=== PATIENT | female | born 1950 | race Caucasian/White ===

== ENCOUNTER 2016-04-18 16:23 | Emergency (ER) | payer MEDICAID, OTHER ==
[~2016-04-18] VITALS: Ht 162.6 cm; Wt 65.0 kg
[~2016-04-18 16:23] MED LIST: ACET500T98 PO; HYDR-3498 PO; IBUP-1542 PO; IBUP200C PO; MED4DP PO; NAPR-260 PO; ULT50 PO
[2016-04-18 16:32] VITALS: Ht 162.6 cm; Wt 65.0 kg
[2016-04-18] MEDS ORDERED: SOD CHLORIDE 0.9% 1,000 ML IV STA (19:21)
[2016-04-18] MEDS ORDERED: morphine 4 MG/ML VIAL IV STA (19:21)
[2016-04-18] MEDS ORDERED: ONDANSETRON 4 MG INJ IV STA ×2 (19:21→21:10)
[2016-04-18 19:30] VITALS: TEMP 98.3
[2016-04-18] MEDS ORDERED: KETOROLAC 30 MG INJ IV STA ×2 (19:31→20:36)
[2016-04-18 19:39] LABS: BASOPHILS % 0.2 % (0.0-2.0); EOSINOPHILS % 0.2 % (0.0-7.0); HEMATOCRIT 41.7 % (37.0-47.0); HEMOGLOBIN 14.1 g/dl (12.0-16.0); LYMPHOCYTES # 1.5 10^3/ul (0.8-2.9); MEAN CORPUSCULAR HEMOGLOBIN 29.4 pg (29.0-33.0); MEAN CORPUSCULAR HGB CONC 33.8 g/dl (32.0-37.0); MEAN PLATELET VOLUME 8.6 fl (7.4-10.4); MONOCYTE # 0.6 10^3/ul (0.3-0.9); MONOCYTES % 4.6 % (0.0-11.0); NEUTROPHIL # 10.2 10^3/ul (1.6-7.5); PLATELET COUNT 341 10^3/UL (140-440); RED BLOOD COUNT 4.79 10^6/ul (4.20-5.40); RED CELL DISTRIBUTION WIDTH 12.6 % (11.5-14.5); UNCORRECTED WBC 12.2 10^3/ul (4.8-10.8); WHITE BLOOD COUNT 12.2 10^3/ul (4.8-10.8)
[2016-04-18 19:40] LABS: ADD UMIC YES; URINE BILIRUBIN (Dip) NEGATIVE (NEGATIVE); URINE BLOOD (Dip) NEGATIVE (NEGATIVE); URINE COLOR LT. YELLOW (YELLOW); URINE GLUCOSE (Dip) NEGATIVE (NEGATIVE); URINE KETONES (Dip) NEGATIVE (NEGATIVE); URINE LEUKOCYTE ESTERASE (Dip) NEGATIVE (NEGATIVE); URINE NITRITE (Dip) NEGATIVE (NEGATIVE); URINE TOTAL PROTEIN (Dip) NEGATIVE (NEGATIVE); URINE UROBILINOGEN (Dip) 0.2 E.U./dL (0.1-1.0)
[2016-04-18 19:43] LABS: CONDITION 1
[2016-04-18 19:46] LABS: ALBUMIN 4.5 g/dl (3.3-4.9); CHLORIDE 95 mmol/L (97-110); SODIUM 142 mmol/L (135-144)
[2016-04-18 19:47] LABS: INR 0.98; PARTIAL THROMBOPLASTIN TIME 29.2 Sec (25.0-35.0)
[2016-04-18 19:48] LABS: AMYLASE 85 U/L (11-123); CREATININE 0.67 mg/dl (0.44-1.00)
[2016-04-18 19:49] LABS: ALANINE AMINOTRANSFERASE 31 IU/L (13-69); ALBUMIN/GLOBULIN RATIO 1.25; ALKALINE PHOSPHATASE 99 IU/L (42-121); ANION GAP 17 (8-16); ASPARTATE AMINO TRANSFERASE 28 IU/L (15-46); BILIRUBIN,INDIRECT 0.2 mg/dl (0-1.1); BILIRUBIN,TOTAL 0.2 mg/dl (0.2-1.3); BLOOD UREA NITROGEN 13 mg/dl (7-20); CARBON DIOXIDE 34 mmol/L (21-31); GLUCOSE 153 mg/dl (70-220); TOTAL PROTEIN 8.1 g/dl (6.1-8.1)
[2016-04-18 19:50] LABS: CALCIUM 9.8 mg/dl (8.4-10.2); URINE RBCS NONE SEEN /HPF (0)
[2016-04-18 20:29] LABS: TROPONIN-I < 0.010 ng/ml (0.00-0.12)
--- NOTE | 2016-04-18 20:40 | ERD ---
ER Documentation Chief Complaint Date/Time DATE: 04/18/16 TIME: 20:38 Chief Complaint ABD PAIN , FEVER , VOMITING X 5 DAYS HPI This is a 66-year-old Serbian-speaking female with no past medical history other than arthritis that presents to the emergency department complaining of intermittent right upper quadrant pain for the past 5 days. She indicates that the pain radiates to the tip of the right scapula. She has had multiple episodes of nonbloody nonbilious emesis after the onset of the pain. She has had a tactile fever with no shaking or chills. She did not take any analgesic medication or antipyretics prior to arrival. She denies any frequency urgency or dysuria. She denies any similar pain in the past. She denies any hemoptysis hematemesis or melanotic stools. She denies any chest pain or pressure that radiates to the neck arm back or jaw. She has no shortness of breath at rest or exertion. ROS All systems reviewed and are negative except as per history of present illness. Medications Home Meds Active Scripts Ibuprofen* (Motrin*) 600 Mg Tab, 600 MG PO Q8, #30 TAB Prov:TIA ABRAHAM 04/18/16 Hydrocodone/Acetaminophen ([place] 5-325 Tablet) 1 Each Tablet, 1 TAB PO Q6H Y for PAIN, #20 TAB Prov:TIA ABRAHAM 04/18/16 Discontinued Scripts Naproxen* (Naprosyn*) 500 Mg Tablet, 500 MG PO BID Y for PAIN AND/OR INFLAMMATION, #30 TAB Prov:DAVIDSON GUTIERREZ PA-C 01/04/16 Methylprednisolone* (Medrol* DOSE PACK) 4 Mg/Dose-Pack Tab.ds.pk, 4 MG PO . DIRECTED, #1 PACKET Prov:DAVIDSON GUTIERREZ PA-C 01/04/16 Tramadol HCl (Tramadol HCl) 50 Mg Tablet, 50 MG PO Q6 Y for PAIN, #30 TAB Prov:LYN RAMIREZ PA-C 07/26/15 Ibuprofen* (Motrin*) 600 Mg Tab, 600 MG PO Q6, #30 TAB Prov:LYN RAMIREZ PA-C 07/26/15 Hydrocodone Bit-Acetaminophen* ([place]*) 5-325 Mg Tab, 1 TAB PO Q6 Y for PAIN, # 14 TAB Prov:DONALD HERNANDEZ DO 05/25/15 Ibuprofen* (Ibuprofen*) 200 Mg Capsule, 200 MG PO Q6, #30 CAP 0 Refills Prov:CRISTALJORDAN PA-C 04/25/15 Acetaminophen (Tylenol) 500 Mg Tab, 500 MG PO Q6, #30 TAB 0 Refills Prov:JOY BEEWINTER BOLTON 04/25/15 Allergies Allergies: Coded Allergies: No Known Allergy (Unverified , 04/18/16) PMhx/Soc Medical and Surgical Hx: pt denies Surgical Hx History of Surgery: No Anesthesia Reaction: No Hx Neurological Disorder: No Hx Respiratory Disorders: No Hx Cardiac Disorders: No Hx Psychiatric Problems: No Hx Miscellaneous Medical Probl: Yes (OA,Gallstones) Hx Alcohol Use: No Hx Substance Use: No Hx Tobacco Use: No Smoking Status: Never smoker Physical Exam Vitals Vital Signs Date Time Temp Pulse Resp B/P Pulse Ox O2 Delivery O2 Flow Rate FiO2 04/18/16 19:30 98.3 73 18 118/76 100 Room Air 04/18/16 16:32 98.2 112 18 170/87 100 Physical Exam Constitutional:Well-developed. Well-nourished. Patient tearful and appeared to be in a significant amount of discomfort secondary to HEENT:Normocephalic. Atraumatic.Pupils were equal round reactive to light. Moist mucous membranes.No tonsillar exudates. Neck: No nuchal rigidity. No lymphadenopathy. No posterior cervical spine tenderness or step-offs. Respiratory: Not using accessory muscles of respiration.Lungs were clear to auscultation bilaterally. No rhonchi. No rales. No wheezing. Cardiovascular: Regular rate regular rhythm.No murmurs. No rubs were appreciated.S1, S2 normal. Distal pulses are palpable 2+ bilaterally. GI: Abdomen was soft. Right upper quadrant tenderness with negative Stone's sign. Non Distended. No pulsatile abdominal masses or bruits. No rebound. No guarding. Bowel sounds were present and normal. Muscle skeletal: Full range of motion of both the upper and lower extremities bilaterally.Normal muscle tone.No assymetrical calf tenderness or swelling. Skin: No petechia, no purpura. No lesions on the palms or the soles of the feet. No maculopapular rash. NEURO: Patient was alert, awake, orientated x3.No facial droop. Gait observed and normal with no ataxia.Speech had regular rate and rhythm. No focal neurological deficits. Result Diagram: 04/18/16191904/18/161919 Results 24 hrs Laboratory Tests Test 04/18/16 19:20 Activated Partial Thromboplast Time 29.2Sec Alanine Aminotransferase (ALT/SGPT) 31IU/L Albumin 4.5g/dl Albumin/Globulin Ratio 1.25 Alkaline Phosphatase 99IU/L Amylase Level 85U/L Anion Gap 17 Aspartate Amino Transf (AST/SGOT) 28IU/L Basophils # 0.010^3/ul Basophils % 0.2% Blood Urea Nitrogen 13mg/dl Calcium Level 9.8mg/dl Carbon Dioxide Level 34mmol/L Chloride Level 95mmol/L Creatinine 0.67mg/dl Direct Bilirubin 0.00mg/dl Eosinophils # 0.010^3/ul Eosinophils % 0.2% Globulin 3.60g/dl Glucose Level 153mg/dl Hematocrit 41.7% Hemoglobin 14.1g/dl INR International Normalized Ratio 0.98 Indirect Bilirubin 0.2mg/dl Lipase 99U/L Lymphocytes # 1.510^3/ul Lymphocytes % 12.0% Mean Corpuscular Hemoglobin 29.4pg Mean Corpuscular Hemoglobin Concent 33.8g/dl Mean Corpuscular Volume 87.0fl Mean Platelet Volume 8.6fl Monocytes # 0.610^3/ul Monocytes % 4.6% Neutrophils # 10.210^3/ul Neutrophils % 83.0% Nucleated Red Blood Cells # 0.010^3/ul Nucleated Red Blood Cells % 0.0/100WBC Platelet Count 56323^3/UL Potassium Level 4.0mmol/L Prothrombin Time 13.0Sec Prothrombin Time Ratio 1.0 Red Blood Count 4.7910^6/ul Red Cell Distribution Width 12.6% Sodium Level 142mmol/L Total Bilirubin 0.2mg/dl Total Protein 8.1g/dl Troponin I < 0.010ng/ml Urine Amorphous Urates MODERATE Urine Bilirubin NEGATIVE Urine Clarity CLOUDY Urine Color LT. YELLOW Urine Glucose NEGATIVE% Urine Hemoglobin NEGATIVE Urine Ketones NEGATIVE Urine Leukocyte Esterase NEGATIVE Urine Microscopic RBC NONE SEEN/HPF Urine Microscopic WBC NONE SEEN/HPF Urine Nitrite NEGATIVE Urine Specific Banks 1.020 Urine Total Protein NEGATIVE Urine Urobilinogen 0.2 E.U./dL Urine pH 8.0 White Blood Count 12.210^3/ul Current Medications Medications (Trade) Dose Ordered Sig/Shellie Route PRN Reason Start Time Stop Time Status Last Admin Dose Admin Sodium Chloride (NS) 1,000 ml @ 1,000 mls/hr Q1H STAT IV 04/18/16 19:21 04/18/16 20:20 DC 04/18/16 19:43 Morphine Sulfate (morphine) 4 mg ONCE STAT IV 04/18/16 19:21 04/18/16 19:22 DC 04/18/16 19:43 Ondansetron HCl (Zofran Inj) 4 mg ONCE STAT IV 04/18/16 19:21 04/18/16 19:22 DC 04/18/16 19:43 Ketorolac Tromethamine (Toradol) 30 mg ONCE STAT IV 04/18/16 19:31 04/18/16 19:33 DC 04/18/16 19:45 Ketorolac Tromethamine (Toradol) 30 mg ONCE STAT IV 04/18/16 20:36 04/18/16 20:37 UNV Hydromorphone HCl (Dilaudid) 1 mg ONCE STAT IV 04/18/16 21:10 04/18/16 21:13 DC Ondansetron HCl (Zofran Inj) 4 mg ONCE STAT IV 04/18/16 21:10 04/18/16 21:13 DC Procedures/MDM The patient presented to the emergency department with epigastric pain. My differential diagnosis included but was not limited to abdominal aortic aneurysm , choledocholithiasis, gallstone ileus, renal colic, pyelonephritis, pancreatitis, peptic ulcer disease, atypical myocardical infarction, mesenteric ischemia, GERD, pulmonary infarction. The patient was placed on a silk screen printer helper, continuous pulse oximetry and IV access was established by nursing staff. An EKG was obtained to rule out myocardial ischemia. There was no elevation of LFTs to suggest ductal obstruction, cholangitis, cholecystiitis or hepatitis. Given that the urinalysis did not show bilirubinuria, my suspicion for common duct obstruction or hepatitis was low. 12 Lead EKG tracing ordered and reviewed by myself showed: Normal sinus rhythm of 85 bpm and no arrhythmia. PA interval normal. QRS duration normal. No ST segment elevation No ST segment depression. No changes consistent with acute ischemia. The patient received intravenous morphine Toradol and Zofran for analgesic control. She also received a liter bolus of 0.9 normal saline. Ultrasound of the gallbladder indicated the patient has cholelithiasis without cholecystitis. The patient's pain is completely resolved. The patient's daughter was at bedside and the patient felt comfortable being discharged home and was given outpatient instructions to improve her diet by avoiding high fatty foods that could exacerbate her biliary colic. The patient was given a prescription of [place] and Motrin for analgesic control The patient was discharged home in fair condition. They were instructed to return to the emergency department at any time if there was any worsening of their condition. The patient stated they would follow up with their PCP in the next 24-48 hours to initiate a suitable medication regimen under the care of their PCP as well as to allow their PCP to monitor any drug reactions. The patient was discharged home with prescriptions after they gave informed consent to the new medication. They were also fully informed by myself on the adverse effects and adverse drug interactions in order to provide adequate safeguards to prevent possible adverse reactions to medications. Departure Diagnosis: Primary Impression: Cholelithiasis Cholelithiasis location: gallbladder Cholecystitis presence: without cholecystitis Biliary obstruction: without biliary obstruction Qualified Code : K80.20 - Calculus of gallbladder without cholecystitis without obstruction Condition: TIA Lee Apr 18, 2016 20:40
--- NOTE | 2016-04-18 20:45 | RADRPT ---
PROCEDURE: US Abdomen (right upper quadrant). CLINICAL INDICATION: Pain. TECHNIQUE: Multiple real-time longitudinal and transverse images of the right upper quadrant of th e abdomen were acquired utilizing a curved array transducer. Images were reviewed on a high-resoluti on PACS workstation. COMPARISON: None FINDINGS: The liver is normal in size and echogencity without focal mass. Multiple gallstones are noted withi n the gallbladder. There is no pericholecystic fluid or gallbladder wall thickening. No intra or e xtrahepatic biliary dilatation is seen. The common bile duct is top normal caliber measuring 6 mm i n maximal dimension. The pancreas is obscured by bowel gas. No free fluid is identified. The right kidney measures 9.2 cm in length. Right kidney is normal in size and echogenicity without hydronephrosis, mass or calculus. There is no perinephric fluid collection. IMPRESSION: 1. Cholelithiasis. No ultrasound evidence for acute cholecystitis. 2. Common bile duct top normal in caliber. No definite biliary ductal dilation. 3. Pancreas obscured by bowel gas. 4. Otherwise negative. RPTAT: RICNH .Ean Coyle MD, MD Date Time Electronically viewed and signed by .Ean Coyle MD, MD on 04/18/2016 20:44 .K/
[2016-04-18] MEDS ORDERED: HYDROmorphONE 1 MG/ML SYG IV STA (21:10)
[2016-04-18] MEDS ORDERED: IBUP-1542 PO (21:15)
[2016-04-18] MEDS ORDERED: HYDR-906 PO (21:15)
[2016-04-18 21:56] VITALS: BP 123/64; PULSE 89; RESP 18
== END 2016-04-18 21:58 | disposition home or self-care (01) ==
LOC: E/R 16:23
DX: K80.20 Calculus of gallbladder without cholecystitis without obstruction (principal); R40.2252 Coma scale, best verbal response, oriented, at arrival to emergency department; R11.10 Vomiting, unspecified
CPT/HCPCS: 76705; 80053; 81001; 82150; 83690; 84484; 85025; 85610; 85730; 93005; 96374; 96375; J1170; J1885; J2270; J2405; J7030; Z7502; Z7610; 81003

== ENCOUNTER 2016-10-25 13:28 | Emergency (ER) | payer OTHER ==
[~2016-10-25] VITALS: Wt 70.5 kg
[~2016-10-25 13:28] MED LIST changes: -ACET500T98 PO; -HYDR-3498 PO; +HYDR-906 PO; -IBUP200C PO; -MED4DP PO; -NAPR-260 PO; -ULT50 PO
--- NOTE | 2016-10-25 14:28 | ERD ---
ER Documentation Chief Complaint Date/Time DATE: 10/25/16 TIME: 14:25 Chief Complaint back pain HPI This 66-year-old female presents with low back pain that started last night after she tried to get up from the bed. She states she was waking up to the restroom, when she tried to stand up she had pain that is sharp, localized in the low back, and she reports some numbness to her right upper thigh. She has a prescription for tramadol, this is prescribed for her gallstones which she tried taking but she states that the pain did not improve with this. She denies any saddle anesthesia, loss of bowel bladder function. She denies fevers or chills. She denies trauma. ROS All systems reviewed and are negative except as per history of present illness. Medications Home Meds Active Scripts Ibuprofen* (Motrin*) 600 Mg Tab, 600 MG PO Q6, #30 TAB Prov:TRAVIS ANTOINE PA-C 10/25/16 Hydrocodone/Acetaminophen ([place] 5-325 Tablet) 1 Each Tablet, 1 TAB PO Q6H Y for PAIN, #15 TAB Prov:TRAVIS ANTOINE PA-C 10/25/16 Ibuprofen* (Motrin*) 600 Mg Tab, 600 MG PO Q8, #30 TAB Prov:TIA ABRAHAM 04/18/16 Hydrocodone/Acetaminophen ([place] 5-325 Tablet) 1 Each Tablet, 1 TAB PO Q6H Y for PAIN, #20 TAB Prov:PRADEEP ABRAHAMA 04/18/16 Allergies Allergies: Coded Allergies: No Known Allergy (Unverified , 04/18/16) PMhx/Soc Medical and Surgical Hx: pt denies Medical Hx, pt denies Surgical Hx History of Surgery: No Anesthesia Reaction: No Hx Neurological Disorder: No Hx Respiratory Disorders: No Hx Cardiac Disorders: No Hx Psychiatric Problems: No Hx Miscellaneous Medical Probl: Yes (OA,Gallstones) Hx Alcohol Use: No Hx Substance Use: No Hx Tobacco Use: No Smoking Status: Never smoker Physical Exam Vitals Vital Signs Date Time Temp Pulse Resp B/P Pulse Ox O2 Delivery O2 Flow Rate FiO2 10/25/16 13:30 98.0 87 20 123/68 100 Physical Exam General: Well-developed, well-nourished. The patient appears in no acute distress. HEENT: Head is normocephalic, atraumatic. No scleral icterus. Neck: Supple. Nontender. Lungs: Clear to auscultation. Normal air movement. Heart: Regular rate and rhythm. S1 and S2 are normal. No murmurs, gallops, or rubs. Abdomen: Soft, nontender, nondistended. Bowel sounds are normoactive. Back: Tender to palpation over L1-L2, paraspinous region on the right side. There is no bony deformity seen. Strength lower 70s 5 out of 5 bilaterally. Extremities: No clubbing or cyanosis. Normal pulses. Moving extremities x 4. No weakness. Neurologic: Alert and oriented 3. No focal deficits. Skin: Normal turgor. No rash or lesions. Results 24 hrs Current Medications Medications (Trade) Dose Ordered Sig/Shellie Route PRN Reason Start Time Stop Time Status Last Admin Dose Admin Ibuprofen (Motrin) 600 mg ONCE ONCE PO 10/25/16 14:30 10/25/16 14:31 DC 10/25/16 14:27 Acetaminophen/ Hydrocodone Bitart ([place] (5/325)) 1 tab ONCE ONCE PO 10/25/16 14:30 10/25/16 14:31 DC 10/25/16 14:27 DIAGNOSTIC IMAGING REPORT Patient: AUBREY BALLESTEROS : 1950 Age: 66 Sex: F MR #: [id number] DOS: 10/25/16 1417 Ordering MD: TRAVIS ANTOINE PA-C Location: [facility] Room/Bed: PROCEDURE: XR Lumbar Spine. CLINICAL INDICATION: Lumbar spine pain. TECHNIQUE: AP, lateral, and cone-down lateral view of the lumbar spine were obtained. COMPARISON: No prior studies are available for comparison. FINDINGS: There is a mild left convex scoliosis centered at L2-3. There are anterior osteophytes from L4-S1 with moderate narrowing of the intervertebral disc spaces at L5-S1. There are moderate associated discogenic endplate changes at this level. The vertebral body heights and marrow density are normal in appearance. There is moderate facet spondylosis at L5-S1 with suggestion of neural foraminal narrowing at this level. The remaining neural foramina appear patent. The paraspinal soft tissues unremarkable. There is no evidence of fracture. Posterior elements are unremarkable IMPRESSION: 1. Moderate spondylosis/degenerative enthesopathy at at L5-S1. 2. Moderate facet spondylosis at L5-S1 with suggestion of neural foraminal narrowing at this level. 3. No evidence of fracture. RPTAT: HGAS .Dagoberto Zamora MD, Date Time Electronically viewed and signed by .Dagoberto Zamora MD, on 10/25/2016 15: 08 .S/ CC: TRAVIS ANTOINE PA-C Procedures/MDM ED course: Patient was given ibuprofen [place] for pain. I will reassess her pain, she states that she is feeling much better at this time. Medical decision makin-year-old female presents with low back pain that started last night after she had tried to get up out of bed. She has some symptoms that caused numbness, that makes me wonder x-ray that shows L4-L5 degenerative changes. There is no evidence of an acute fracture. She denies trauma, there is no history to indicate signs of any neurologic emergency. Her examination just those muscle and soft tissue tenderness, that appears to be from the back, without any signs of dissection, acute coronary syndrome, kidney stones, pyelonephritis or any intra-abdominal process. She was medicated with ibuprofen and [place] and states that she feels significantly better at this time. Patient will be discharged with a short course of the same medications and is stable for discharge. Patient's blood pressure was elevated (>120/80) but appears stable without evidence of hypertension emergency or urgency. The patient was counseled about the risks of hypertension and urged to pursue outpatient monitoring and therapy within a week with their primary care physician. Departure Diagnosis: Primary Impression: Injury of back Condition: TRAVIS Morrison PA-C Oct 25, 2016 14:28
[2016-10-25] MEDS ORDERED: IBUPROFEN 600 MG TAB PO ONE (14:30)
[2016-10-25] MEDS ORDERED: HYDROCODONE/APAP (5/325) TAB PO ONE (14:30)
--- NOTE | 2016-10-25 15:08 | RADRPT ---
PROCEDURE: XR Lumbar Spine. CLINICAL INDICATION: Lumbar spine pain. TECHNIQUE: AP, lateral, and cone-down lateral view of the lumbar spine were obtained. COMPARISON: No prior studies are available for comparison. FINDINGS: There is a mild left convex scoliosis centered at L2-3. There are anterior osteophytes from L4-S1 w ith moderate narrowing of the intervertebral disc spaces at L5-S1. There are moderate associated di scogenic endplate changes at this level. The vertebral body heights and marrow density are normal in appearance. There is moderate facet spondylosis at L5-S1 with suggestion of neural foraminal narro wing at this level. The remaining neural foramina appear patent. The paraspinal soft tissues unrem arkable. There is no evidence of fracture. Posterior elements are unremarkable IMPRESSION: 1. Moderate spondylosis/degenerative enthesopathy at at L5-S1. 2. Moderate facet spondylosis at L5-S1 with suggestion of neural foraminal narrowing at this level. 3. No evidence of fracture. RPTAT: HGAS .Dagoberot Zamora MD, Date Time Electronically viewed and signed by .Dagoberto Zamora MD, on 10/25/2016 15:08 .S/
[2016-10-25] MEDS ORDERED: IBUP-1542 PO (15:34)
[2016-10-25] MEDS ORDERED: HYDR-906 PO (15:34)
[2016-10-25 15:44] VITALS: BP 111/65; PULSE 65; RESP 18; TEMP 98.2
== END 2016-10-25 15:45 | disposition home or self-care (01) ==
LOC: FTE 13:28
DX: S39.92XA Unspecified injury of lower back, initial encounter (principal); X58.XXXA Exposure to other specified factors, initial encounter; Y92.9 Unspecified place or not applicable
CPT/HCPCS: 72100; Z7502; Z7610

== ENCOUNTER 2017-10-24 06:34 | Emergency (ER) | END 2017-10-24 07:51 | disposition home or self-care (01) ==

== ENCOUNTER 2017-11-26 09:01 | Emergency (ER) | END 2017-11-26 12:19 | disposition home or self-care (01) ==